=== PATIENT | male | born 1995 | race Caucasian/White ===

== ENCOUNTER 2016-11-29 10:51 | Emergency (ER) | payer OTHER ==
[~2016-11-29] VITALS: Ht 185.4 cm; Wt 83.6 kg
[2016-11-29 10:53] VITALS: TEMP 37.1; Ht 185.4 cm; Wt 83.6 kg
[2016-11-29] MEDS ORDERED: SODIUM CHLORIDE 0.9% 1000ML 1,000 ML IV STA (11:09)
[2016-11-29] MEDS ORDERED: ONDANSETRON INJ 2 MG/ML 2 ML VIAL IV STA (11:09)
[2016-11-29 11:31] LABS: BASO % 0.6 %; BASO ABS # 0.04 K/uL (0-0.2); COMPLETE YES; EOS % 2.4 %; HEMATOCRIT 45.3 % (42-52); IG% 0.3 %; LYMPH % 21.1 %; LYMPH ABS # 1.31 K/uL (1.2-3.4); MEAN CELL VOLUME 85.5 fL (80-100); MEAN CORPUSCULAR HEMOGLOBIN 29.6 pg (25-34); MEAN CORPUSCULAR HGB CONC 34.7 g/dl (32-36); MEAN PLATELET VOLUME 10.5 fL (7.4-10.4); MONO % 8.5 %; NEUT % 67.1 %; PLATELET COUNT 215 K/uL (130-400)
[2016-11-29 11:55] LABS: BUN/CREATININE RATIO 10.6 (10-20); CALCIUM 8.9 mg/dl (8.5-10.1); CREATININE 1.08 mg/dl (0.60-1.40); POTASSIUM 3.7 mmol/L (3.5-5.1)
--- NOTE | 2016-11-29 12:18 | DIAGNOSTIC IMAGING REPORT ---
CHEST ONE VIEW PORTABLE HISTORY: vomiting COMPARISON: None. FINDINGS: The lungs are clear. Cardiac silhouette is normal in size. No pleural effusions. No pneumothorax. IMPRESSION: No acute process. Electronically signed by: Burke Granado M.D. 11/29/2016 12:17 PM Dictated Date/Time: 11/29/2016 12:13 PM
[2016-11-29 12:27] VITALS: BP 141/77; PULSE 75; O2SAT 100
[2016-11-29] MEDS ORDERED: FAMO20TA11 PO (12:38)
[2016-11-29] MEDS ORDERED: ONDA4TAB46 PO (12:38)
[2016-11-29] MEDS ORDERED: FAMOTIDINE 20 MG TAB PO ONE (12:45)
--- NOTE | 2016-11-29 17:03 | EMERGENCY ROOM VISIT NOTE ---
History Report prepared by Riley: Sebastián Hutton Under the Supervision of: Dr. Vasiliy Morales D.O. First contact with patient: 11:01 Chief Complaint: VOMITING Stated Complaint: RED EYES, COUGHED BLOOD, LIGHTHEADED History of Present Illness The patient is a 21 year old male who presents to the Emergency Room with complaints of one episode of vomiting that occurred this morning. He notes that he drank about 3 or 4 alcoholic beverages last night and felt normal at this time. He woke up this morning and felt very nauseated. He then experienced diarrhea and this one episode of vomiting. There was small specks of blood mixed into the emesis. Afterward, he noticed he had red circles around his eyes and he kept tasting blood in his mouth. He did not have any more vomiting. He denies any abdominal pain. He denies any abdominal surgeries in the past. He denies any medical problems as well. Source of History: patient Onset: this morning Position: other (GI) Symptom Intensity: 1 episode Quality: other (Vomiting) Timing: intermittent Associated Symptoms: + nausea, No abdominal pain Note: He has redness around his eyes. Review of Systems See HPI for pertinent positives & negatives. A total of 10 systems reviewed and were otherwise negative. Past Medical & Surgical Medical Problems: (1) No Known Active Medical Problems Family History Patient reports no known family medical history. Social History Smoking Status: Never Smoker Smokeless Tobacco Use: No Alcohol Use: occasionally Drug Use: none Marital Status: single Housing Status: lives with friends Occupation Status: [employer] student Current/Historical Medications Scheduled Famotidine (Pepcid), 20 MG PO DAILY Scheduled PRN Ondansetron Hcl (Zofran), 4 MG PO TID PRN for Nausea Allergies Coded Allergies: Amoxicillin (Unverified Adverse Reaction, Intermediate, HEAD TO TOE RASH, 11/29/16) Penicillins (Unverified Adverse Reaction, Intermediate, HEAD TO TOE RASH, 11/29/16) Physical Exam Vital Signs Date Time Temp Pulse Resp B/P (MAP) Pulse Ox O2 Delivery O2 Flow Rate FiO2 11/29/16 12:27 75 20 141/77 100 Room Air 11/29/16 10:53 37.1 94 16 125/52 97 Room Air Physical Exam GENERAL: Sitting up in bed, alert, well appearing, well nourished, no distress, non-toxic EYE EXAM: normal conjunctiva, petechiae around the eyes bilaterally OROPHARYNX: no exudate, lips, buccal mucosa, and tongue normal and mucous membranes are moist. Petechiae to the posterior soft pallet. NECK: supple, no nuchal rigidity, no adenopathy, non-tender LUNGS: Clear to auscultation. Normal chest wall mechanics HEART: no murmurs, S1 normal and S2 normal ABDOMEN: abdomen soft, non-tender, normo-active bowel sounds, no masses, no rebound or guarding. BACK: Back is symmetrical on inspection and there is no deformity, no midline tenderness, no CVA tenderness. SKIN: no rashes and no bruising UPPER EXTREMITIES: upper extremities are grossly normal. LOWER EXTREMITIES: No pitting edema. NEURO EXAM: Normal sensorium, cranial nerves II-XII grossly intact, normal speech, no gross weakness of arms, no gross weakness of legs. Medical Decision & Procedures ER Provider Diagnostic Interpretation: Radiology results as stated below per my review and the radiologist's interpretation: CHEST ONE VIEW PORTABLE HISTORY: vomiting COMPARISON: None. FINDINGS: The lungs are clear. Cardiac silhouette is normal in size. No pleural effusions. No pneumothorax. IMPRESSION: No acute process. Electronically signed by: Burke Granado M.D. 11/29/2016 12:17 PM Dictated Date/Time: 11/29/2016 12:13 PM Laboratory Results 11/29/16 11:15 Red Blood Count 5.30, Mean Corpuscular Volume 85.5, Mean Corpuscular Hemoglobin 29.6, Mean Corpuscular Hemoglobin Concent 34.7, Mean Platelet Volume 10.5, Neutrophils (%) (Auto) 67.1, Lymphocytes (%) (Auto) 21.1, Monocytes (%) (Auto) 8.5, Eosinophils (%) (Auto) 2.4, Basophils (%) (Auto) 0.6, Neutrophils # (Auto) 4.15, Lymphocytes # (Auto) 1.31, Monocytes # (Auto) 0.53, Eosinophils # (Auto) 0.15, Basophils # (Auto) 0.04 11/29/16 11:15 Test 11/29/16 11:15 White Blood Count 6.20 K/uL (4.8-10.8) Red Blood Count 5.30 M/uL (4.7-6.1) Hemoglobin 15.7 g/dL (14.0-18.0) Hematocrit 45.3 % (42-52) Mean Corpuscular Volume 85.5 fL (80-100) Mean Corpuscular Hemoglobin 29.6 pg (25-34) Mean Corpuscular Hemoglobin Concent 34.7 g/dl (32-36) Platelet Count 215 K/uL (130-400) Mean Platelet Volume 10.5 fL (7.4-10.4) Neutrophils (%) (Auto) 67.1 % Lymphocytes (%) (Auto) 21.1 % Monocytes (%) (Auto) 8.5 % Eosinophils (%) (Auto) 2.4 % Basophils (%) (Auto) 0.6 % Neutrophils # (Auto) 4.15 K/uL (1.4-6.5) Lymphocytes # (Auto) 1.31 K/uL (1.2-3.4) Monocytes # (Auto) 0.53 K/uL (0.11-0.59) Eosinophils # (Auto) 0.15 K/uL (0-0.5) Basophils # (Auto) 0.04 K/uL (0-0.2) RDW Standard Deviation 40.2 fL (36.4-46.3) RDW Coefficient of Variation 12.9 % (11.5-14.5) Immature Granulocyte % (Auto) 0.3 % Immature Granulocyte # (Auto) 0.02 K/uL (0.00-0.02) Anion Gap 6.0 mmol/L (3-11) Est Creatinine Clear Calc Drug Dose 122.2 ml/min Estimated GFR () 113.1 Estimated GFR (Non- 97.6 BUN/Creatinine Ratio 10.6 (10-20) Calcium Level 8.9 mg/dl (8.5-10.1) Total Bilirubin 0.5 mg/dl (0.2-1) Direct Bilirubin 0.1 mg/dl (0-0.2) Aspartate Amino Transf (AST/SGOT) 16 U/L (15-37) Alanine Aminotransferase (ALT/SGPT) 19 U/L (12-78) Alkaline Phosphatase 95 U/L (45-117) Total Protein 7.9 gm/dl (6.4-8.2) Albumin 4.0 gm/dl (3.4-5.0) Lipase 103 U/L (73-393) Laboratory results per my review. Medications Administered Medications (Trade) Dose Ordered Sig/Armando Route Start Time Stop Time Status Last Admin Dose Admin Sodium Chloride 1,000 ml @ 999 mls/hr Q1H1M STAT IV 11/29/16 11:09 11/29/16 12:09 DC 11/29/16 11:18 999 MLS/HR Ondansetron HCl (Zofran Inj) 4 mg NOW STAT IV 11/29/16 11:09 11/29/16 11:10 DC 11/29/16 11:18 4 MG Famotidine (Pepcid Tab) 20 mg NOW ONCE PO 11/29/16 12:45 11/29/16 12:46 DC 11/29/16 12:53 20 MG ED Course ED COURSE: Vital signs were reviewed and showed normal vitals. The patients medical record was reviewed The above diagnostic studies were performed and reviewed. ED treatments and interventions as stated above. 1101: The patient was evaluated in room B11. A complete history and physical examination was performed. 1109: Ordered Zofran Inj 4 mg IV, Sodium Chloride 1000 ml @ 999 mls/hr IV 1245: Ordered Pepcid Tab 20 mg PO 1315: Upon reevaluation, the patient is resting. I discussed my findings with the patient and he understands and agrees with the treatment plan. Based on the patients age, coexisting illnesses, exam and lab findings the decision to treat as an outpatient was made. The patient remained stable while under my care. The patient appeared well at the time of discharge. Medical Decision Differential diagnoses includes but is not limited to gastritis, peptic ulcer disease, GERD, gallbladder disease, pancreatitis, small bowel obstruction, acute coronary syndrome, pericarditis, ischemic bowel, irritable bowel disease, irritable bowel syndrome, appendicitis, diverticulitis, malignancy, hernia, urinary tract infection, torsion, perforation, trauma, infectious. Patient is a 21-year-old male who presents to ER following drinking last night with nausea and vomiting. He vomited once and noticed small flecks of blood in the vomit since then he has been tasting a little bit of blood but no vomiting. His abdominal exam is completely benign. He denies any pain. He takes no blood thinners. No history of any medical problems. CBC on BMP, LFTs, bilirubin lipase is unremarkable. She had no urinary complaints. Chest x-ray was unremarkable. Patient was given Pepcid, fluids and Zofran. He felt significantly better. He was discharged tolerating by mouth follow-up with PCP. I do favor this is likely a gastritis or small Ana Rosa-Baker tear from the retching especially since he has petechiae around the eyes likely secondary to the vomiting. Discussed with Pt concerning signs and symptoms to watch out for. Pt was instructed to follow up with their PCP and discussed with the patient their option to return to the ED at anytime for persistent or worsening symptoms. The appropriate anticipatory guidance and out-patient management, including indications for return to the emergency department, were explained at length to the patient and understood. Medication Reconcilliation Current Medication List: was personally reviewed by me Blood Pressure Screening Patient's blood pressure: Normal blood pressure Blood pressure disposition: Did not require urgent referral Impression Primary Impression: Gastritis Additional Impression: Vomiting Scribe Attestation The scribe's documentation has been prepared under my direction and personally reviewed by me in its entirety. I confirm that the note above accurately reflects all work, treatment, procedures, and medical decision making performed by me. Departure Information Dispostion Home / Self-Care Prescriptions Famotidine (Pepcid) 20 Mg Tab 20 MG PO DAILY, #30 TAB Prov: Vasiliy Morales, DO 11/29/16 Ondansetron Hcl (ZOFRAN) 4 Mg Tab 4 MG PO TID Y for Nausea, #30 TAB Prov: Vasiliy Morales, DO 11/29/16 Referrals No Doctor, Assigned (PCP) Forms HOME CARE DOCUMENTATION FORM, IMPORTANT VISIT INFORMATION, School Instructions Patient Instructions ED Nausea Vomiting, Gastritis Tx, My [facility] Additional Instructions Please follow up with your primary care doctor or if you are a student, [facility] with in the next 24 hours. Any worsening of your symptoms, please return to the ED immediately. This includes any fevers greater than 100.4, worsening pain, vomiting blood, dark tarry stools, bloody stool, chest pain, shortness breath, persistent nausea, vomiting, unable to eat or drink, or any other concerning signs or symptoms from your standpoint. Please take Zofran as needed for nausea. Please take Pepcid daily. Problem Qualifiers Primary Impression: Gastritis Gastritis type: alcoholic Chronicity: acute Gastritis bleeding: with bleeding Qualified Codes: K29.21 - Alcoholic gastritis with bleeding Additional Impression: Vomiting Vomiting type: unspecified Vomiting Intractability: unspecified Nausea presence: unspecified Qualified Codes: R11.10 - Vomiting, unspecified
== END 2016-11-29 12:50 | disposition home or self-care (01) ==
LOC: C.EDB 10:55
DX: K29.21 Alcoholic gastritis with bleeding (principal); Z79.899 Other long term (current) drug therapy